=== PATIENT | male | born 1950 | race Caucasian/White ===

== ENCOUNTER 2021-05-27 05:25 | Observation (INO) | payer MEDICARE, BC ==
[2021-05-27 05:52] LABS: #Eosinphils 0.2 thou/uL (0.0-0.7); #Lymphocytes 2.5 thou/uL (1.20-3.40); #Monocytes 0.7 thou/uL (0.11-0.59); #Neutrophils 2.4 thou/uL (1.40-6.50); %Basophils 0.5 % (0.0-1.0); %Lymphocytes 43.4 % (21.0-51.0); %Monocytes 11.7 % (0.0-10.0); %Neutrophils 41.3 % (42.0-75.0); Hemoglobin 14.6 g/dL (14.0-18.0); Mean Corpuscular HGB CONC 34.4 g/dL (32.0-36.0); Mean Corpuscular Hemoglobin 34.1 pg (27.0-31.0); Mean Corpuscular Volume 99.2 fL (78.0-98.0); Mean Platelet Volume 8.1 fL (7.4-10.4); Platelet Count 186 thou/uL (130-400); RBC Distribution Width 11.7 % (11.5-14.5); Red Blood Cell (RBC) Count 4.29 mill/uL (4.70-6.10); White Blood Cell (WBC) Count 5.7 thou/uL (4.8-10.8)
[2021-05-27 06:17] LABS: ALT (SGPT) 11 U/L (8-55); AST (SGOT) 14 U/L (5-34); Alkaline Phosphatase 59 U/L (40-110); Anion Gap 10 mmol/L (10-20); BUN (Urea Nitrogen) 11 mg/dL (8.4-25.7); Bilirubin, Total 0.9 mg/dL (0.2-1.2); Calc. Creatinine Clearance 0 mL/min (70-130); Calcium 9.5 mg/dL (7.8-10.44); Carbon Dioxide 29 mmol/L (23-31); Chloride 102 mmol/L (98-107); Globulin 4.2 g/dL (2.4-3.5); Glucose 108 mg/dL (80-115); Lipase 25 U/L (8-78); Potassium 3.3 mmol/L (3.5-5.1); Protein, Total 8.2 g/dL (5.8-8.1); Sodium 138 mmol/L (136-145)
[2021-05-27] MEDS ORDERED: Nitroglycerin 2% Ointment 1 INCH/1 GM Packet ONE (06:20)
[2021-05-27] MEDS ORDERED: Aspirin Chewable 81 MG TAB ONE (06:44)
[2021-05-27] MEDS ORDERED: Potassium Chloride 20 MEQ TAB ONE (06:44)
[2021-05-27] MEDS ORDERED: Ondansetron PF 4 MG/2 ML Vial IVP PRN (08:05)
[2021-05-27] MEDS ORDERED: Acetaminophen 325 MG TAB PO PRN (08:05)
[2021-05-27] MEDS ORDERED: Amlodipine 5 MG TAB PO SCH (08:45)
[2021-05-27 10:01] LABS: SARS-CoV-2 NAA Rapid Test Not Detected (NotDetected)
[2021-05-27 10:03] LABS: Troponin I Less than 0.010 ng/mL (< 0.028)
[2021-05-27 10:48] VITALS: BMI 25.8
[2021-05-27 13:02] LABS: Troponin I Less than 0.010 ng/mL (< 0.028)
[2021-05-27] MEDS ORDERED: Enoxaparin Sodium 40 MG/0.4 ML SYRINGE SC SCH (21:00)
[2021-05-27] MEDS ORDERED: Non-Formulary Item 1 EACH (Sacubitril/Valsartan [Entresto 97 Mg-103 Mg Tablet] 1 EACH Tab PO SCH (21:00)
[2021-05-27] MEDS ORDERED: Non-Formulary Item 1 EACH (Carvedilol [Coreg] 12.5 MG Tab) PO SCH (21:00)
[2021-05-27] MEDS ORDERED: Non-Formulary Item 1 EACH (Ubidecarenone [Co Q-10] 200 MG Capsule) PO SCH (21:00)
[2021-05-27] MEDS: Carvedilol 6.25 MG TAB PO SCH (21:45)
[2021-05-27] MEDS: Sacubitril 49 MG/Valsartan 51 MG TABLET PO SCH (21:45)
[2021-05-28 05:33] LABS: #Basophils 0.1 thou/uL (0.0-0.2); #Eosinphils 0.1 thou/uL (0.0-0.7); #Lymphocytes 2.7 thou/uL (1.20-3.40); #Monocytes 0.6 thou/uL (0.11-0.59); #Neutrophils 2.7 thou/uL (1.40-6.50); %Basophils 0.8 % (0.0-1.0); %Eosinophils 2.1 % (0.0-10.0); %Lymphocytes 43.3 % (21.0-51.0); %Monocytes 10.1 % (0.0-10.0); %Neutrophils 43.7 % (42.0-75.0); Hemoglobin 14.5 g/dL (14.0-18.0); Mean Corpuscular HGB CONC 33.5 g/dL (32.0-36.0); Mean Corpuscular Hemoglobin 33.6 pg (27.0-31.0); Mean Platelet Volume 8.6 fL (7.4-10.4); Platelet Count 190 thou/uL (130-400); RBC Distribution Width 11.7 % (11.5-14.5); Red Blood Cell (RBC) Count 4.32 mill/uL (4.70-6.10); White Blood Cell (WBC) Count 6.2 thou/uL (4.8-10.8)
[2021-05-28 06:10] LABS: Anion Gap 9 mmol/L (10-20); BUN (Urea Nitrogen) 14 mg/dL (8.4-25.7); Calc. Creatinine Clearance 111 mL/min (70-130); Calcium 9.4 mg/dL (7.8-10.44); Carbon Dioxide 26 mmol/L (23-31); Chloride 105 mmol/L (98-107); Glucose 104 mg/dL (80-115); Potassium 3.4 mmol/L (3.5-5.1); Sodium 137 mmol/L (136-145)
[2021-05-28] MEDS ORDERED: Furosemide 20 MG TAB PO SCH (09:00)
[2021-05-28 11:10] VITALS: TEMP 96.7
[2021-05-28] MEDS: Sacubitril 49 MG/Valsartan 51 MG TABLET PO SCH (11:11)
[2021-05-28] MEDS: Carvedilol 6.25 MG TAB PO SCH (11:11)
[2021-05-28 11:13] VITALS: BP 147/86
[2021-05-28] MEDS ORDERED: Regadenoson 0.4 MG/5 ML SYRINGE ONE (11:56)
[2021-05-28] MEDS ORDERED: FLU VACC QS2021-22(65YR UP)/PF 240 MCG/0.7 ML SYRINGE IM ONE (13:15)
== END 2021-05-28 15:30 | disposition home or self-care (01) ==
LOC: ERS 05:25 → SUATTDRO 05:25 → 2SW 06:46
PROVIDERS: ADMIT Internal Medicine; ATTEND Internal Medicine
DX: R07.9 Chest pain, unspecified (principal); I11.0 Hypertensive heart disease with heart failure; I50.20 Unspecified systolic (congestive) heart failure; I25.10 Atherosclerotic heart disease of native coronary artery without angina pectoris; M25.511 Pain in right shoulder; M25.512 Pain in left shoulder; Z79.82 Long term (current) use of aspirin; Z79.899 Other long term (current) drug therapy; Z95.1 Presence of aortocoronary bypass graft; Z20.822 Contact with and (suspected) exposure to COVID-19
CPT/HCPCS: 71045; 78452; 80048; 80053; 83690; 84484 ×2; 85025 ×2; 93005; 93017; 99285; A9500; U0002; 36415; 96372; G0378; J1650; J2785

== ENCOUNTER 2024-12-27 11:00 | Outpatient (CLI) | payer MEDICARE | END 2024-12-27 11:01 | disposition home or self-care (01) | LOC: PET 11:00 | PROVIDERS: ATTEND Internal Medicine Hematology & Oncology | DX: C90.00 Multiple myeloma not having achieved remission (principal); D53.9 Nutritional anemia, unspecified | CPT/HCPCS: 78816; A9552 ==

== ENCOUNTER 2025-01-11 10:42 | Emergency (ER) | payer MEDICARE ==
[~2025-01-11 10:42] MED LIST: Iopamidol-370 76% 500 ML MDV (1 ML CHARGE) ONE
[2025-01-11 11:46] LABS: Hematocrit 18.7 % (42.0-52.0); Hemoglobin 5.9 g/dL (14.0-18.0); Mean Corpuscular Hemoglobin 38.3 pg (27.0-31.0); Mean Corpuscular Volume 121.4 fL (78.0-98.0); Platelet Count 11 10x3/uL (130-400); Red Blood Cell (RBC) Count 1.54 mill/uL (4.70-6.10); White Blood Cell (WBC) Count 4.45 10x3/uL (4.8-10.8)
[2025-01-11 12:05] LABS: Potassium 3.8 mmol/L (3.5-5.1)
[2025-01-11 12:06] LABS: Albumin 1.8 g/dL (3.1-4.5); Calcium 9.4 mg/dL (7.8-10.44); Chloride 103 mmol/L (98-107); Sodium 128 mmol/L (136-145)
[2025-01-11 12:07] LABS: Globulin 10.9 g/dL (2.4-3.5); Glucose 114 mg/dL (83-110)
[2025-01-11 12:08] LABS: Anion Gap 4 mmol/L (10-20); Carbon Dioxide 25 mmol/L (23-31)
[2025-01-11 12:10] LABS: Alkaline Phosphatase 101 U/L (40-110); Bilirubin, Total 0.8 mg/dL (0.3-1.2)
[2025-01-11 12:11] LABS: BUN (Urea Nitrogen) 10 mg/dL (8.4-25.7); Calc. Creatinine Clearance 0 mL/min (70-130)
[2025-01-11 12:13] LABS: ALT (SGPT) 18 U/L (Less than 45); AST (SGOT) 39 U/L (11-34)
[2025-01-11 12:50] LABS: Giant Platelets SLIGHT HPF (0-5); Macrocytosis MARKED = >30 cells (100X) (0-5/hpf); Nucleated RBC (Manual Ct) 11 % (0); Ovalocytes MODERATE= 6-15 cells (100X) (0-1/hpf); Plasma Cells 0 % (0-0); Platelet Adequacy Comment Appears Decreased; Polychromasia SLIGHT = 2-3 cells (100X) (0-2/hpf); Target Cells SLIGHT = 2-5 cells (100X) (0-1/hpf)
[2025-01-11 12:51] LABS: Microcytosis SLIGHT = 6-15 cells (100X) (0-5/hpf)
== END 2025-01-11 18:58 | disposition home or self-care (01) ==
LOC: ERS 10:42
DX: D69.6 Thrombocytopenia, unspecified (principal); D63.0 Anemia in neoplastic disease; I25.10 Atherosclerotic heart disease of native coronary artery without angina pectoris; I10 Essential (primary) hypertension; Z55.6 Problems related to health literacy; Z75.3 Unavailability and inaccessibility of health-care facilities; Z87.891 Personal history of nicotine dependence; Z79.82 Long term (current) use of aspirin; Z79.899 Other long term (current) drug therapy
CPT/HCPCS: 36430; 74177; 76705; 80053; 85025; 86850; 86900; 86901; 86920; P9016; P9035; 36415

== ENCOUNTER 2025-01-16 09:56 | Day surgery (SDC) | payer MEDICARE ==
[2025-01-16] MEDS ORDERED: Acetaminophen 500 MG TAB ONE (10:55)
[2025-01-16] MEDS ORDERED: diphenhydrAMINE 25 MG CAP PO SCH (11:00)
[2025-01-16] MEDS: Acetaminophen 500 MG TAB PO SCH (11:17)
[2025-01-16 15:15] VITALS: BP 115/65; TEMP 98.2
== END 2025-01-16 15:15 | disposition home or self-care (01) ==
LOC: ONC/OP 09:56
PROVIDERS: ATTEND Internal Medicine Hematology & Oncology
DX: D64.9 Anemia, unspecified (principal); D69.6 Thrombocytopenia, unspecified
CPT/HCPCS: 36430; 86850; 86900; 86901; 86920; P9016; P9035

== ENCOUNTER 2025-01-17 09:55 | Day surgery (SDC) | payer MEDICARE ==
[2025-01-17] MEDS ORDERED: diphenhydrAMINE 25 MG CAP ONE (10:42)
[2025-01-17] MEDS ORDERED: Acetaminophen 500 MG TAB ONE (10:42)
[2025-01-17] MEDS: diphenhydrAMINE 25 MG CAP PO SCH (10:42)
[2025-01-17] MEDS: Acetaminophen 500 MG TAB PO SCH (10:43)
[2025-01-17 13:27] VITALS: BP 133/71; TEMP 97.9
== END 2025-01-17 12:15 | disposition home or self-care (01) ==
LOC: ONC/OP 09:55
PROVIDERS: ATTEND Internal Medicine Hematology & Oncology
DX: D69.6 Thrombocytopenia, unspecified (principal); D64.9 Anemia, unspecified
CPT/HCPCS: 86850; 86900; 86901; 86920; P9016; P9035; 36430

== ENCOUNTER 2025-01-18 09:37 | Emergency (ER) | payer MEDICARE ==
[2025-01-18] MEDS ORDERED: Iopamidol-370 76% 500 ML MDV (1 ML CHARGE) ONE (10:15)
[2025-01-18 10:36] LABS: Hematocrit 23.4 % (42.0-52.0); Hemoglobin 7.2 g/dL (14.0-18.0); Mean Corpuscular Hemoglobin 35.0 pg (27.0-31.0); Mean Corpuscular Volume 113.6 fL (78.0-98.0); Platelet Count 18 10x3/uL (130-400); Red Blood Cell (RBC) Count 2.06 mill/uL (4.70-6.10); White Blood Cell (WBC) Count 3.74 10x3/uL (4.8-10.8)
[2025-01-18 10:54] LABS: ALT (SGPT) 15 U/L (Less than 45); AST (SGOT) 20 U/L (11-34); Albumin 1.9 g/dL (3.1-4.5); Alkaline Phosphatase 123 U/L (40-110); Anion Gap 4 mmol/L (10-20); BUN (Urea Nitrogen) 12 mg/dL (8.4-25.7); Bilirubin, Total 1.6 mg/dL (0.3-1.2); Calc. Creatinine Clearance 0 mL/min (70-130); Calcium 9.7 mg/dL (7.8-10.44); Carbon Dioxide 29 mmol/L (23-31); Chloride 102 mmol/L (98-107); Globulin 8.8 g/dL (2.4-3.5); Glucose 97 mg/dL (83-110); Lipase 15 U/L (8-78); Potassium 3.4 mmol/L (3.5-5.1); Sodium 132 mmol/L (136-145)
[2025-01-18 11:05] LABS: INR-International Normal Ratio 1.3; PTT 34.3 sec (22.9-36.1); Prothrombin Time 16.6 sec (12.0-14.7)
[2025-01-18] MEDS ORDERED: Ondansetron PF 4 MG/2 ML Vial ONE (11:20)
[2025-01-18 11:44] LABS: Bacteria/HPF None Seen HPF (None Seen); CAUTI Indications for Culture Dysuria,urgency,freq; Glucose, Urine (Dipstick) Normal (Negative); Leukocyte Negative Leu/uL (Negative); Protein, Urine (Dipstick) 50 mg/dL (Neg-Trace); RBC/HPF 0-3 HPF (0-3); Specific Gravity, Urine 1.013 (1.002-1.036); WBC/HPF 0-3 HPF (0-3)
[2025-01-18 11:56] LABS: Anisocytosis MODERATE=16-30 cells (100X) (0-5/hpf); Macrocytosis MODERATE=16-30 cells (100X) (0-5/hpf); Ovalocytes SLIGHT = 2-5 cells (100X) (0-1/hpf); Plasma Cells 0 % (0-0); Platelet Adequacy Comment PLT SIG DEC; Polychromasia SLIGHT = 2-3 cells (100X) (0-2/hpf); Smudge Cells 15
[2025-01-18 12:18] LABS: Urine Culture Reflex No No
[2025-01-18] MEDS ORDERED: Dicyclomine 20 MG TAB ONE (13:47)
[2025-01-18] MEDS ORDERED: HYDROcodone/Acetaminophen 5/325 mg Tablet ONE (17:26)
[2025-01-18] MEDS ORDERED: HYDROcodone/Acetaminophen 5/325 mg Tablet PO SCH (17:30)
== END 2025-01-18 17:34 | disposition short-term general hospital (02) ==
LOC: ERS 09:37
DX: R18.8 Other ascites (principal); K80.20 Calculus of gallbladder without cholecystitis without obstruction; I25.10 Atherosclerotic heart disease of native coronary artery without angina pectoris; I10 Essential (primary) hypertension; Z87.891 Personal history of nicotine dependence
CPT/HCPCS: 74177; 76705; 80053; 81001; 83605; 83690; 85025; 85610; 85730; J2270; 96374; 96375; 96376

== ENCOUNTER 2025-01-23 09:16 | Day surgery (SDC) | payer MEDICARE ==
[2025-01-23] MEDS: diphenhydrAMINE 25 MG CAP PO SCH (09:41)
[2025-01-23] MEDS: Acetaminophen 500 MG TAB PO SCH (09:42)
[2025-01-23] MEDS ORDERED: FLU (Fluad Triv) 25-26 (65UP)PF 45 MCG/0.5 ML Syringe IM ONE (10:15)
[2025-01-23] MEDS ORDERED: PNEUMOC 20-VAL CONJ-DIP CRM/PF 0.5 ML SYRINGE IM ONE (10:15)
[2025-01-23 12:20] VITALS: BP 144/73; TEMP 98.1
== END 2025-01-23 12:24 | disposition home or self-care (01) ==
LOC: ONC/OP 09:16
PROVIDERS: ATTEND Internal Medicine Hematology & Oncology
DX: D69.6 Thrombocytopenia, unspecified (principal); D64.9 Anemia, unspecified
CPT/HCPCS: 36430; 86850; 86900; 86901; P9035; 90653

== ENCOUNTER 2025-01-26 10:11 | Day surgery (SDC) | payer MEDICARE ==
[2025-01-26] MEDS ORDERED: Acetaminophen 500 MG TAB ONE (11:02)
[2025-01-26] MEDS ORDERED: diphenhydrAMINE 25 MG CAP ONE (11:02)
[2025-01-26] MEDS: diphenhydrAMINE 25 MG CAP PO SCH (11:02)
[2025-01-26] MEDS: Acetaminophen 500 MG TAB PO SCH (11:02)
[2025-01-26 12:36] VITALS: BP 119/68; TEMP 97.9
== END 2025-01-26 12:46 | disposition home or self-care (01) ==
LOC: ONC/OP 10:11
PROVIDERS: ATTEND Internal Medicine Hematology & Oncology
DX: D69.6 Thrombocytopenia, unspecified (principal); D64.9 Anemia, unspecified; C90.00 Multiple myeloma not having achieved remission
CPT/HCPCS: 36415; 36430; 80053; 86850; 86900; 86901; P9035

== ENCOUNTER 2025-01-27 10:22 | Day surgery (SDC) | payer MEDICARE ==
[2025-01-27] MEDS ORDERED: Acetaminophen 500 MG TAB PO SCH (10:45)
[2025-01-27] MEDS ORDERED: diphenhydrAMINE 25 MG CAP PO SCH (10:45)
[2025-01-27 14:45] VITALS: BP 127/65; TEMP 98.8
== END 2025-01-27 14:45 | disposition home or self-care (01) ==
LOC: ONC/OP 10:22
PROVIDERS: ATTEND Internal Medicine Hematology & Oncology
DX: D64.9 Anemia, unspecified (principal); D69.6 Thrombocytopenia, unspecified
CPT/HCPCS: 36430; 86850; 86900; 86901; 86920; P9016; P9035